=== PATIENT | male | born 2005 | race African-American/Black ===

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

== ENCOUNTER 2025-01-22 19:43 | Emergency (ER) | payer MEDICAID ==
[~2025-01-22] VITALS: Ht 180.3 cm; Wt 109.0 kg
--- NOTE | 2025-01-22 20:12 | ED.PDOC ---
History of Present Illness(SKN HPI Comments A 19 year-old male presents to the ED with a chief complaint of wellness check s/p stepping on son nail with right foot X3 days ago. Patient reports approx. One cm of the son nail penetrated the bottom of the right foot while wearing crocs. Patient reports feeling "hot" with bilateral hands feeling cold. Patient reports additional symptoms of jaw discomfort but denies further associated symptoms of general weakness, fever, or N/V. Patient reports never receiving a Tetanus shot. Past Medical history: DENIES ANY Past Surgical history: DENIES ANY Medications: DENIES ANY Social History: Denies smoking, ETOH, and drug use. Allergies: NKA HPI: Poor Historian. REVIEW OF SYSTEMS: CONSTITUTIONAL: Denies acute: fever, diaphoresis, HEAD: Denies acute: headache, photophobia Eyes: Denies acute: Double vision, vision loss, eye pain, eye discharge. EARS: Denies acute: tinnitus, hearing loss, ear discharge, ear pain, THROAT: Denies acute: sore throat, swelling, difficulty swallowing , pain with swallowing, change in voice. NECK: Denies acute: neck pain, neck swelling, stiff neck. HEART: Denies acute : chest pain, palpitations, LUNGS: Denies acute: SOB, wheezing, cough, hemoptysis ABDOMEN: Denies acute: abdominal pain, Nausea, Vomiting, diarrhea, melena , hematemesis, hematochezia SKIN: Denies acute: rash, redness, lesions, itchiness. EXTREMITIES: Denies acute: calf pain, numbness, tingling, weakness, Denies acute: Low back pain. Neuro: Denies acute: focal neurological deficit, motor or sensory focal neurological deficit, tremors, seizure like activity, confusion, dizziness, change in mental status, loss of bowel or bladder function, cauda equina like symptoms. : Denies acute: dysuria, hematuria, flank pain, increase in urinary frequency. PSYCH: Denies acute: hallucination, suicidal ideation, homicidal ideation. PHYSICAL EXAM: General: ----no----acute distress, awake and alert. Head: normocephalic, atraumatic. Neck: supple, trachea is midline, no swelling. Throat: Normal phonation. Eyes:, no erythema, no purulent discharge, no proptosis, no icterus. Heart: regular rate, regular rhythm, no significant murmur appreciated. Lungs: no apparent respiratory distress, Able to speak in full sentences. No wheezing, no rhonchi, no crackles. No stridors Clear to auscultation bilaterally. Abdomen: non tender to palpation, non distended, soft, no guarding, no rebound, + bowel sounds. Neuro: Awake, Alert, oriented to name, self, situation, follows commands GCS=15. Speech is normal. Skin: no petechia, no purpura, no cyanosis, non-pale, not jaundice. Lower extremities: --no - Pitting edema no deformity, no focal swelling, no calf TTP. Evaluation of the affected foot: Bottom of the foot where the nail puncture wound is reveals no erythema, no swelling, no crepitus,. Patient is neurovascularly intact in the affected extremity. Makes eye contact. moves all four extremities. Face: no apparent facial droop. Ambulating in the ED independently. Pedal pulses are palpable. ED COURSE: DISCLAIMER: This medical document was created using an electronic medical record system with voice recognition software and computerized dictation system. Although this document has been carefully reviewed, there might still be some phonetic and typographical errors. Occasional wrong-word or "sound-alike" substitutions may have occurred due to the inherent limitations of voice recognition software. These areas are purely typographical due to imperfections of the software programs and do not reflect any compromise in the patient's medical care. Please read the chart carefully and recognize, using context, where these substitutions have occurred. Chief Complaint: Wound to Right Foot Time Seen by MD: 20:00 History of Present Illness: Medications, Allergies Allergies: Coded Allergies: NO KNOWN ALLERGIES (Unverified , 05/13/17) Home Meds Active Scripts Cephalexin Monohydrate (Cephalexin) 500 Mg Tab, 1 TAB PO QID for 7 Days, #28 TAB Prov:CAMELIA CUEVAS 01/22/25 Information Source: Patient Mode of Arrival: Ambulatory Severity: Moderate Timing: Days Duration: Since onset Prehospital treatment: None Location: Foot Object: Nail Condition of Object: Dirty Retained Foreign Body: No Wound Type: Puncture Past Medical History PAST MEDICAL HISTORY: Denies Surgical History: Denies all surgeries Social History Smoker: Non-Smoker Alcohol: Denies ETOH Use Drugs: Denies Drug Use Lives In: Home Was a procedure done? Was a procedure done?: No Differential Diagnosis (INTG) Differential Diagnosis: Abrasion, Cellulitis, Contusion, Fracture, Hematoma, Laceration, Puncture Wound Differential Diagnosis: Gangrene Differential Diagnosis: Neurovascular Injury, Retained Foreign Body Abscess: Bacteremia, Gas Gangrene X-Ray, Labs, Meds, VS Vital Signs Date Time Temp Pulse Resp B/P (MAP) Pulse Ox O2 Delivery O2 Flow Rate FiO2 01/22/25 23:11 98.7 91 18 122/72 (89) 97 98.7 01/22/25 20:00 100.0 115 16 126/64 (84) 95 100.0 Lab Test 01/22/25 20:18 Range/Units White Blood Count 7.6 4.4-10.8 10^3/uL Red Blood Count 5.26 4.5-5.90 10^6/uL Hemoglobin 14.7 13.5-17.5 g/dL Hematocrit 43.5 41.0-53.0 % Mean Corpuscular Volume 82.6 80.0-100.0 fL Mean Corpuscular Hemoglobin 28.0 28.0-32.0 pg Mean Corpuscular Hemoglobin Concent 33.9 32.0-36.0 g/dL Red Cell Distribution Width 14.3 11.8-14.3 % Platelet Count 226 140-450 10^3/uL Mean Platelet Volume 8.3 6.9-10.8 fL Neutrophils (%) (Auto) 77.4 37.0-80.0 % Lymphocytes (%) (Auto) 9.4 L 10.0-50.0 % Monocytes (%) (Auto) 11.6 0.0-12.0 % Eosinophils (%) (Auto) 1.1 0.0-7.0 % Basophils (%) (Auto) 0.5 0.0-2.0 % Neutrophils # (Auto) 5.9 1.6-8.6 10 ^3/uL Lymphocytes # (Auto) 0.7 0.4-5.4 10 ^3/uL Monocytes # (Auto) 0.9 0-1.3 10 ^3/uL Eosinophils # (Auto) 0.1 0-0.8 10 ^3/uL Basophils # (Auto) 0 0-0.2 10 ^3/uL Nucleated Red Blood Cells 0.1 % Lactic Acid Level 1.2 0.4-2.0 mmol/L Current Medications Medications (Trade) Dose Ordered Sig/Chrystal Route Start Time Stop Time Status Last Admin Diphtheria/ Tetanus/Acell Pertussis (Boostrix T-Dap) 0.5 ml ONCE ONCE IM 01/22/25 20:15 01/22/25 20:16 DC 01/22/25 20:15 Cefazolin Sodium 50 ml @ 100 mls/hr ONCE ONCE IV 01/22/25 20:15 01/22/25 20:44 DC 01/22/25 22:39 [place] [id number] Ph: [phone] DIAGNOSTIC IMAGING Diagnostic Imaging Report : [id number] Signed PATIENT: NINO BARNES ACCT: [id number] UNIT: [id number] : 2005 LOC: ER ROOM / BED: / AGE / SEX: 19 / M ADM STATUS: REG ER SERVICE 05 ORDERING PHYSICIAN: CAMELIA CUEVAS DO PROCEDURE(s): RFOOT - R FOOT 3 VIEW XRAY REASON: nail puncture ORDER NUMBER(s): [id number], ACCESSION NUMBER(s): [id number] CLINICAL INDICATION: nail puncture TECHNIQUE: XY R FOOT 3 VIEW XRAY Comparison: None FINDINGS/IMPRESSION: : There is no evidence of acute fracture or dislocation. Soft tissues are unremarkable. ATED BY: JOVAN LORD MD DICTATED DATE/TIME: 01/22/252130 SIGNED BY: JOVAN LORD MD SIGNED DATE/TIME: 01/22/252130 CC: Time of 1ST Reevaluation: 00:00 Reevaluation 1ST: N/A Patient Education/Counseling: Diagnosis, Treatment Family Education/Counseling: Other Comments MDM: patient presented with the above HPI.---old puncture wound of the bottom of the feet---workup was initiated. patient was found with the above mentioned diagnosis. the following medications were ordered: please refer to order lists of meds and tests obtained by myself Dr. Cuevas. Patient ED course and VS have been stabilized. Patient has been reassessed in the ED and remained in a stable condition. Pertinent incidental findings were discussed with the patient and/or family. Patient/family voices understanding and is agreeable with plan. Patient has been observed in the ED adequate length of time to insure improvement/stability. Escalation of care considered: Consideration of escalation to observation or admission Patient is given IV antibiotics, tetanus updated, wound care instructions given to the patient. X-ray obtained of the foot to rule out foreign body Patient was DISCHARGED home in a stable condition. All the reports of any imaging studies that were ordered by myself were reviewed by myself. SEPSIS Sepsis Screen Physician Orders R Foot 3 View Xray (01/22/25 20:06) Vital Signs Date Time Temp Pulse Resp B/P (MAP) Pulse Ox O2 Delivery O2 Flow Rate FiO2 01/22/25 23:11 98.7 91 18 122/72 (89) 97 98.7 01/22/25 20:00 100.0 115 16 126/64 (84) 95 100.0 Laboratory Tests Test 01/22/25 20:18 Lactic Acid Level 1.2 mmol/L (0.4-2.0) White Blood Count 7.6 10^3/uL (4.4-10.8) Departure 1 Departure Time of Disposition: 20:14 Impression: Primary Impression: Puncture wound of skin from metal nail Disposition: 01 HOME / SELF CARE / HOMELESS Condition: Stable Additional Instructions: Additional instructions: You MUST follow-up with your primary care/family doctor in 1 to 2 days. If you are unable to see your primary care/family doctor, please return to our emergency room for re-assessment and re-evaluation in 1 to 2 days. Return to the emergency room here in our facility or to the nearest ER [facility] if your symptoms change or worsen. CONSULTATIONS: you MUST Follow-up for consultation as soon as possible with: Adequate fluid hydration. Keep the wound clean and covered. Apply [id number] triple ointment daily. e-Prescriptions Cephalexin Monohydrate (Cephalexin) 500 Mg Tab 1 TAB PO QID for 7 Days, #28 TAB Prov: CAMELIA CUEVAS DO 01/22/25 Discharged With: Self Critical Care Note Critical Care Time?: No I personally scribed for CAMELIA CUEVAS DO ([email or web address]) on 01/22/25 at 20:12. Electronically submitted by Aylin Chavez ([facility]). CAEMLIA CUEVAS DO Jan 22, 2025 20:12
[2025-01-22] MEDS: TETANUS-DIPTH-ACEL PERTUSSIS 0.5ML SYR Tdap IM ONE (20:15)
[2025-01-22] MEDS ORDERED: CEPH500T PO (20:19)
[2025-01-22 21:04] LABS: Hematocrit 43.5 % (41.0-53.0); Hemoglobin 14.7 g/dL (13.5-17.5); Mean Corpuscular Hemoglobin 28.0 pg (28.0-32.0); Mean Corpuscular Volume 82.6 fL (80.0-100.0); Nucleated Red Blood Cells % 0.1 %
--- NOTE | 2025-01-22 21:33 | DVH ---
CLINICAL INDICATION: nail puncture TECHNIQUE: XY R FOOT 3 VIEW XRAY Comparison: None FINDINGS/IMPRESSION: : There is no evidence of acute fracture or dislocation. Soft tissues are unremarkable.
[2025-01-22] MEDS: ceFAZolin 1GM/50ML 50 ML IV ONE (22:39)
[2025-01-22 23:11] VITALS: BP 122/72; PULSE 91; RESP 18; TEMP 98.7; O2SAT 97
== END 2025-01-22 23:14 | disposition home or self-care (01) ==
LOC: ER 19:43
DX: S91.331A Puncture wound without foreign body, right foot, initial encounter (principal); Z79.899 Other long term (current) drug therapy; W45.0XXA Nail entering through skin, initial encounter; Y93.89 Activity, other specified; Y92.89 Other specified places as the place of occurrence of the external cause; Y99.8 Other external cause status
CPT/HCPCS: 36415; 73630; 83605; 85025; 90471; 90715; 96365; 99284; J0690